=== PATIENT | male | born 1950 | race Caucasian/White ===

== ENCOUNTER → 2021-04-01 | Day surgery (SDC) | payer OTHER ==
[~2021-04-01] MED LIST: Flumazenil 0.1 MG/ML 5 ML MDV ONE; Lactated Ringers 1,000 ML IV SCH; Midazolam 1 MG/ML 2 ML SDV ONE; Propofol 200 MG/20 ML SDV ONE; fentaNYL 100 MCG/2 ML SDV ONE
[2021-04-01 11:29] VITALS: BP 119/73; PULSE 59
--- NOTE | 2021-04-01 14:35 | OR ---
DATE OF OPERATION: 04/01/2021 PREOPERATIVE DIAGNOSIS: SCREENING COLONOSCOPY. POSTOPERATIVE DIAGNOSIS: SCREENING COLONOSCOPY. SURGEON: Isacc Peters MD PROCEDURE: FULL-LENGTH COLONOSCOPY WITH FORCEPS POLYP REMOVAL X1. ANESTHESIA: MAC. COMPLICATIONS: None. SPECIMEN: Small sessile polyp, distal sigmoid colon, likely hyperplastic. RECOMMENDATIONS: Followup colonoscopy pending path reports, likely in 10 years. INDICATIONS: The patient was overdue for routine surveillance colonoscopy. He elected to proceed. DESCRIPTION OF PROCEDURE: The patient was prepped and draped, placed in the left lateral decubitus position. A lubricated Olympus colonoscope was inserted and easily advanced to the cecum. Direct visualization of the ileocecal valve and appendiceal orifice was accomplished. The bowel prep was excellent. Upon withdrawal of the scope, the cecum, ascending and transverse colon were completely unremarkable. The patient does have scattered diverticular disease throughout most of the left colon, very mild in severity. No inflammatory changes were seen. He had 1 small sessile polyp around 35 cm, which was removed with a forceps in its entirety, likely hyperplastic polyp. There were no other polyps, masses, ulceration, or bleeding sites. No vascular abnormalities or signs of colitis. Rectal vault was benign. Retroflexion showed no perianal lesions. Air was suctioned and the scope removed without complication. GISEL/KEITH /[id number]
== END ==
LOC: CC.SDS 08:03
PROVIDERS: ATTEND Family Medicine
DX: Z12.11 Encounter for screening for malignant neoplasm of colon (principal); K63.5 Polyp of colon; K57.30 Diverticulosis of large intestine without perforation or abscess without bleeding; N40.1 Benign prostatic hyperplasia with lower urinary tract symptoms; R35.1 Nocturia; I25.10 Atherosclerotic heart disease of native coronary artery without angina pectoris; E78.00 Pure hypercholesterolemia, unspecified; I10 Essential (primary) hypertension; E59 Dietary selenium deficiency; Z79.82 Long term (current) use of aspirin; Z79.899 Other long term (current) drug therapy
CPT/HCPCS: 00812; J2250; J2704; J3010; J3490; J7120